=== PATIENT | female | born 1980 | race Caucasian/White ===

== ENCOUNTER 2016-07-30 17:29 | Observation (INO) | payer OTHER ==
[~2016-07-30] VITALS: Ht 152.4 cm; Wt 85.9 kg
--- NOTE | 2016-07-30 17:41 | DIAGNOSTIC IMAGING REPORT ---
PROCEDURE: US ABDOMEN ULTRASOUND-LIMITED INDICATION: Right abdominal pain. TECHNIQUE: Renteria scale and color Doppler sonographic images of the abdomen were obtained. COMPARISON: None. FINDINGS: There is moderate distention of the gallbladder secondary to a 3 cm nonmobile gallstone lodged in the neck of the gallbladder. Mild thickening of the gallbladder wall (5 mm). Common duct is obscured by shadowing gallstones, but there is no evidence of intrahepatic ductal dilation. Liver demonstrates two right lobe hemangiomas (1.6, 0.9 cm). Portions of the pancreas, right kidney, aorta, inferior vena cava are seen, and are normal. IMPRESSION: 1. Moderate distention of the gallbladder secondary to a 3 cm nonmobile gallstone lodged in the neck of the gallbladder. abdominal ultrasound. 2. Mild thickening of the gallbladder wall (5 mm) consistent with cholecystitis (acute or chronic). 3. There are two benign hemangiomas of the right lobe of the liver. 3. Findings discussed with the patient and called to AYANA Lopez.
--- NOTE | 2016-07-30 18:53 | ED ORDER SUMMARY ---
..... Patient: JUJU BARR OrderSheet [facility] VisitID: [id number] [place] [address] 36y, F Registration Date/Time: 07/30/2016 ORDER SHEET Weight: 89.6 kg (estimated) Allergies: No Known Drug Allergy GENERAL ORDERS: CBC w Diff Urgent (18:00 07/30/2016 Ade BUSTILLOS) (Ack 18:08 LMuller) (18:27 Rebekaeck R.N.) CMP Urgent (18:00 07/30/2016 Ade BUSTILLOS) (Ack 18:08 LMuller) (18:27 Rebekaeck R.N.) Amylase Urgent (18:07/30/2016 Ade BUSTILLOS) (Ack 18:08 LMuller) (18:27 Abelino R.N.) Lipase Urgent (18:00 07/30/2016 Ade BUSTILLOS) (Ack 18:08 LMuller) (18:27 Rebekaeck R.N.) UA-Culture if indicated Urgent (18:03 07/30/2016 Ade BUSTILLOS) (Ack 18:08 LMuller) Urine Urgent (18:03 07/30/2016 Ade BUSTILLOS) (Ack 18:08 LMuller) Urine Drug Screen Urgent (18:03 07/30/2016 Ade BUSTILLOS) (Ack 18:08 LMuller) MEDICATION ORDERS: IV FLUIDS: IV NS : initial bolus 500 mL (1000 mL/hr), then 250 mL/hr for 4h (NOW); Routine (18:00 07/30/2016 Ade BUSTILLOS) (18:33 Yelitza R.N.) Zofran IV 4 mg (NOW) (18:57 07/30/2016 Ade BUSTILLOS) (19:02 Yelitza R.N.) Demerol IV 12.5 mg (NOW) (18:58 07/30/2016 Ade BUSTILLOS) (19:02 Yelitza R.N.) Cefotan IV 1 gm (NOW) (19:08 07/30/2016 Ade BUSTILLOS) (19:21 EInderbitzen R.N.) ORDER SHEET NOTES: [Electronically signed by Scarlett Soriano R.N. (19:37 07/30/2016)] [Electronically signed by Noah Delgado MD (11:13 07/31/2016)] [Electronically locked/signed by Scarlett Soriano R.N. (19:37 07/30/2016)]
--- NOTE | 2016-07-30 18:53 | ED ORDER SUMMARY ---
..... Patient: JUJU BARR OrderSheet [facility] VisitID: [id number] [place] [address] 36y, F Registration Date/Time: 07/30/2016 ORDER SHEET Weight: 89.6 kg (estimated) Allergies: No Known Drug Allergy GENERAL ORDERS: CBC w Diff Urgent (18:00 07/30/2016 Ade BUSTILLOS) (Ack 18:08 LMuller) (18:27 Rebekaeck R.N.) CMP Urgent (18:00 07/30/2016 Ade BUSTILLOS) (Ack 18:08 LMuller) (18:27 Rebekaeck R.N.) Amylase Urgent (18:07/30/2016 Ade BUSTILLOS) (Ack 18:08 LMuller) (18:27 Abelino R.N.) Lipase Urgent (18:00 07/30/2016 Ade BUSTILLOS) (Ack 18:08 LMuller) (18:27 Rebekaeck R.N.) UA-Culture if indicated Urgent (18:03 07/30/2016 Ade BUSTILLOS) (Ack 18:08 LMuller) Urine Urgent (18:03 07/30/2016 Ade BUSTILLOS) (Ack 18:08 LMuller) Urine Drug Screen Urgent (18:03 07/30/2016 Ade BUSTILLOS) (Ack 18:08 LMuller) MEDICATION ORDERS: IV FLUIDS: IV NS : initial bolus 500 mL (1000 mL/hr), then 250 mL/hr for 4h (NOW); Routine (18:00 07/30/2016 Ade BUSTILLOS) (18:33 Yelitza R.N.) Zofran IV 4 mg (NOW) (18:57 07/30/2016 Ade BUSTILLOS) (19:02 Yelitza R.N.) Demerol IV 12.5 mg (NOW) (18:58 07/30/2016 Ade BUSTILLOS) (19:02 Yelitza R.N.) Cefotan IV 1 gm (NOW) (19:08 07/30/2016 Ade BUSTILLOS) (19:21 EInderbitzen R.N.) ORDER SHEET NOTES: [Electronically signed by Scarlett Soriano R.N. (19:37 07/30/2016)] [Electronically signed by Noah Delgado MD (11:13 07/31/2016)] [Electronically locked/signed by Scarlett Soriano R.N. (19:37 07/30/2016)]
--- NOTE | 2016-07-30 18:53 | ED CLINICAL REPORT ---
Clinical Report - Physicians/Mid Levels [facility] [address] [place] [address] 07/30/2016 17:30 Patient: JUJU BARR Time Seen: 1741. Arrived- By private vehicle. Historian- patient. CPT: ER phys charges level 5 (#[id number]). HISTORY OF PRESENT ILLNESS Chief Complaint: ABDOMINAL PAIN. At its maximum, severity described as moderate. When seen in the E.D., it was almost gone. Modifying factors- worsened by food. Not relieved by anything. It is described as "pain" and well localized and it is described as located in the right upper quadrant. This started about 1 weeks [employer] and is still present. The patient has had nausea and loss of appetite. No vomiting or diarrhea. No recent travel. Similar symptoms previously: None. Recent medical care: The patient was seen recently at another facility in a clinic (today). Seen for similar symptoms; Abdominal pain and MILNER. Evaluation/treatment: sonogram- sent to ER. Diagnosis: gall stones. ( Did get an injection of dexamethasone and phenergan for the MILNER and this also helped the abdominal pain.). REVIEW OF SYSTEMS No constipation, black stools, hematemesis, difficulty with urination or pain with urination. No urinary frequency, fever, sore throat or throat or chest pain. No difficulty breathing, cough, joint pain, skin rash or chills. No back pain, weakness, diabetic symptoms or easy bruising. Denies current . All systems otherwise negative, except as recorded above. PAST HISTORY Peptic ulcer. Gallstones. No history of bowel obstruction. Has not had urinary calculi. Medications: Compazine Oral. Imitrex. White GI Cocktail. Omeprazole 40 mg daily. Allergies: No Known Drug Allergy. SOCIAL HISTORY Never smoker. Occasional alcohol use. No drug use. ADDITIONAL NOTES The nursing notes have been reviewed. PHYSICAL EXAM Vital Signs: 07/30/2016 17:47 BP: 128/92. HR: 86. RR: 16. O2 saturation: 98%. Temp: 99.4 F. Pain level now: 08/01. Appearance: Alert. Appears to be in pain. Patient in moderate distress. Eyes: Eyes normal inspection. ENT: Pharynx normal. Neck: Normal inspection. CVS: Normal heart rate and rhythm. Heart sounds normal. Pulses normal. Respiratory: No respiratory distress. Breath sounds normal. Chest nontender. Abdomen: Soft. Moderate tenderness in the right upper quadrant with guarding present. Abnormal bowel sounds: diminished. No mass. Back: Normal inspection. Skin: Skin warm. Normal skin color. No rash. Extremities: Extremities exhibit normal ROM. No lower extremity edema. Neuro: Oriented X 3. No motor deficit. No sensory deficit. Reflexes normal. LABS, X-RAYS, AND EKG Abdominal Sonogram: A single gallstone is present (3 cm). Gallbladder wall thickening is present. The study was independently viewed by me and interpreted by the radiologist. Laboratory Tests: CBC w Diff: ([facility]: 07/31/2016 05:40) ( MsgRcvd 07/31/2016 05:51) Final results Test Result Flag Units (Reference) WHITE BLOOD COUNT 5.6 # K/uL (4.5-11.5) RED BLOOD COUNT 4.27 M/uL (4.00-5.20) HEMOGLOBIN 11.0 L gm/dL (12.0-16.0) HEMATOCRIT 33.4 L % (36.0-46.0) MEAN CELL VOLUME 78 L fL (80-100) MEAN CORPUSCULAR HGB 26 pg (26-34) MEAN CORPUSCULAR HGB CONC 33 g/dL (31-37) RED CELL DISTRIBUTION WIDTH 14.4 % (11.6-14.8) PLATELET COUNT 359 K/uL (150-400) NEUTROPHIL % 87.1 H % (50-75) LYMPH % 11.9 L % (25-40) MONO % 1.0 L % (3-14) EOSINOPHIL % 0 % (0-4) BASOPHIL % 0 % (0-2) BMP: ([facility]: 07/31/2016 05:40) ( MsgRcvd 07/31/2016 06:24) Final results Test Result Flag Units (Reference) GLUCOSE 120 H mg/dL (70-110) BUN 10 mg/dL (7-18) CREATININE 0.5 L mg/dL (0.6-1.3) Estimated GFR >60 mL/min Estimated GFR- >60 mL/min Note: Persistent reduction over 3 months in eGFR<60 mL/min/1.73 m2 defines CKD. Patients with eGFR values>=60 mL/min/1.73 m2 may also have CKD if evidence ofpersistent proteinuria. Additional information may be foundat www.kidney.org. SODIUM 147 H mmol/L (136-145) POTASSIUM 4.6 mmol/L (3.5-5.1) CHLORIDE 99 mmol/L (98-107) CARBON DIOXIDE 20 L mmol/L (21-32) CALCIUM 10.0 mg/dL (8.5-10.1) Bilirubin, Total: ([facility]: 07/31/2016 05:40) ( [facility] 07/31/2016 06:06) Final results Test Result Flag Units (Reference) BILIRUBIN, TOTAL 0.2 mg/dL (0.0-1.0) ALKALINE PHOSPHATASE 86 U/L (46-116) LIPASE 88 U/L (73-393) UA-Culture if indicated: ([facility]: 07/30/2016 20:00) ( [facility] [place] 07/30/2016 21:03) Final results Test Result Flag Units (Reference) URINE COLOR YELLOW URINE APPEARANCE CLEAR URINE GLUCOSE NEGATIVE (NEGATIVE) URINE BILIRUBIN NEGATIVE (NEGATIVE) URINE KETONE 3+ (NEGATIVE) URINE SPECIFIC GRAVITY 1.020 (1.010-1.030) URINE PH 6.5 (5.0-8.0) URINE PROTEIN NEGATIVE (NEGATIVE) URINE UROBILINOGEN 0.2 EU/dL (0.2-1.0) URINE NITRITE NEGATIVE (NEGATIVE) URINE BLOOD 2+ (NEGATIVE) URINE LEUK ESTERASE NEGATIVE (NEGATIVE) URINE RBC 5-10 rbc/hpf (0-1) URINE WBC 3-5 wbc/hpf (0-1) URINE EPITHELIAL CELLS 5-10 EPI/hpf (0-5) URINE BACTERIA MODERATE (2+ TO 3+) (NONE SEEN) URINE COMMENT CULTURE INDICATED MUCUS 2+URINE CULTURES ARE SET-UP BASED ON THE FOLLOWING CRITERIA:POSITIVE NITRITEPOSITIVE LEUKOCYTE ESTERASEGREATER THAN 10 WHITE BLOOD CELLSMODERATE (2+) OR GREATER BACTERIA Urine: ([facility]: 07/30/2016 20:00) ( [facility] [place] 07/30/2016 20:43) Final results Test Result Flag Units (Reference) URINE NEGATIVE CBC w Diff: ([facility]: 07/30/2016 18:05) ( [facility] 07/30/2016 18:23) Final results Test Result Flag Units (Reference) WHITE BLOOD COUNT 12.7 H K/uL (4.5-11.5) RED BLOOD COUNT 4.79 M/uL (4.00-5.20) HEMOGLOBIN 12.4 gm/dL (12.0-16.0) HEMATOCRIT 37.3 % (36.0-46.0) MEAN CELL VOLUME 78 L fL (80-100) MEAN CORPUSCULAR HGB 26 pg (26-34) MEAN CORPUSCULAR HGB CONC 33 g/dL (31-37) RED CELL DISTRIBUTION WIDTH 14.2 % (11.6-14.8) PLATELET COUNT 440 H K/uL (150-400) NEUTROPHIL % 92.4 H % (50-75) LYMPH % 6.6 L % (25-40) MONO % 0.9 L % (3-14) EOSINOPHIL % 0.1 % (0-4) BASOPHIL % 0 % (0-2) Urine Drug Screen: ([facility]: 07/30/2016 20:00) ( [facility] 07/30/2016 20:58) Final results Test Result Flag Units (Reference) AMPHETAMINE/METHAMPHETAMINE NEGATIVE (NEGATIVE) BARBITURATE NEGATIVE (NEGATIVE) BENZODIAZEPINE NEGATIVE (NEGATIVE) CANNABINOID NEGATIVE (NEGATIVE) COCAINE NEGATIVE (NEGATIVE) ECSTASY NEGATIVE (NEGATIVE) METHADONE NEGATIVE (NEGATIVE) OPIATE NEGATIVE (NEGATIVE) The urine drug screen is a qualitative screening test fordrug overdose and abuse. All screen results should beconsidered as presumptive.Drugs screened for are as follows:BenzodiazepinesCocaineAmphetamines/MetamphetaminesTHC (Tetrahydrocannabinol)OpiatesBarbituratesEcstasyMethadonePositive results are unconfirmed. For confirmation, notifythe lab for the specimen to be sent to the reference lab.All confirmations must be performed by a differentmethodology.The ingestion of natural herbal and plant productscontaining Ephedra/Ephedra metabolites can produce in urineone or more substances capable of cross reacting withamphetamine/methamphetamine immunoassays. These testsprovide a preliminary result only. A more specificalternative chemical method must be used to obtain aconfirmed analytical result. CMP: ([facility]: 07/30/2016 18:05) ( MsgRcvd 07/30/2016 18:35) Final results Test Result Flag Units (Reference) GLUCOSE 104 mg/dL (70-110) BUN 8 mg/dL (7-18) CREATININE 0.7 mg/dL (0.6-1.3) Estimated GFR >60 mL/min Estimated GFR- >60 mL/min Note: Persistent reduction over 3 months in eGFR<60 mL/min/1.73 m2 defines CKD. Patients with eGFR values>=60 mL/min/1.73 m2 may also have CKD if evidence ofpersistent proteinuria. Additional information may be foundat www.kidney.org. SODIUM 141 mmol/L (136-145) POTASSIUM 4.0 mmol/L (3.5-5.1) CHLORIDE 104 mmol/L (98-107) CARBON DIOXIDE 24 mmol/L (21-32) CALCIUM 10.5 H mg/dL (8.5-10.1) TOTAL PROTEIN 8.3 H g/dL (6.4-8.2) ALBUMIN 4.1 g/dL (3.3-5.0) BILIRUBIN, TOTAL 0.4 mg/dL (0.0-1.0) ALKALINE PHOSPHATASE 98 U/L (46-116) AST (SGOT) 19 U/L (15-37) ALT (SGPT) 39 U/L (12-78) LIPASE 92 U/L (73-393) AMYLASE 40 U/L (25-115) Culture, Urine: ([facility]: 07/30/2016 20:00) ( MsgRcvd 07/31/2016 10:24) IP Test Result Flag Units (Reference) CULTURE, URINE DATE: 07/31/16 PRELIM REPORT: PRELIMINARY REPORT #1 VERY EARLY GROWTH: VERY EARLY GROWTH: CULTURE TOO YOUNG FOR WORKUP-REINCUBATED . PROGRESS AND PROCEDURES Course of Care: patient notes that her pain and her nausea have resolved since she got a shot in the walk-in clinic for her headache. I'm told the shot was dexamethasone and Phenergan. IV NS , labs sent. Discussed case with on-call health care provider, (Adriano). Reviewed test results. Agreed upon treatment plan and decision to admit. Health care provider will see patient in ED. Patient/family counseled. Old medical records ordered. Disposition orders written. Disposition: Admitted to Acute Care. CLINICAL IMPRESSION Acute cholecystitis with obstruction and cholelithiasis. No choledocholithiasis. (Electronically signed by Noah Delgado MD 07/31/2016 11:13)
--- NOTE | 2016-07-30 18:53 | ED NURSING NOTES ---
Clinical Report - Nurses [facility] [place] [address] 07/30/2016 17:30 Patient: JUJU BARR TRIAGE Triage time 17:47 Jul 30 2016. Acuity: LEVEL 3. Chief Complaint: ABDOMINAL PAIN and NAUSEA and (Reported s/s started 1 week ago. Patient had an outpatient US doen that revealed a galstone.). --17:54 Zen Jackson R.N. 17:47 07/30/16. BP: 128/92. HR: 86. RR: 16. O2 saturation: 98%. Temp: 99.4 F. Pain level now: 08/01. --17:54 Zen Jackson R.N. Weight: 89.6 kg estimated. Height/Length: 60 inches Per Patient. BMI: 38.6. --17:46 Zen Jackson R.N. Medications Omeprazole 40 mg daily. --17:49 Zen Jackson R.N. White GI Cocktail. --17:49 Zen Jackson R.N. Imitrex. --17:49 Zen Jackson R.N. Compazine Oral. --17:50 Zen Jackson R.N. Medication/allergy information source: the patient and patient's spouse. --17:54 Zen Jackson R.N. Allergies No Known Drug Allergy. --17:48 Zen Jackson R.N. History Arrived by private vehicle. Historian: patient. Accompanied by family. The patient has had fever, nausea, diarrhea and abdominal pain. Last oral intake by patient was dinner (07/29/16). PAST MEDICAL HX: Peptic ulcer disease. No history of diabetes mellitus. Last normal menstrual period now. Denies current . ( Suspected peptic ulcer a few years ago.). SURGERY HX: Bilateral tubal ligation. SOCIAL HX: Never smoker. Occasional alcohol use. No drug use. No infectious disease exposure. ABUSE ASSESSMENT: No report of abuse. FALL RISK ASSESSMENT: Fall risk assessment completed. No fall risk identified. NUTRITIONAL RISK ASSESSMENT: The nutritional risk assessment revealed no deficiencies. FUNCTIONAL ASSESSMENT: Functional assessment: no impairments noted. LEARNING NEEDS ASSESSMENT: The learning needs assessment revealed no barriers. SKIN INTEGRITY ASSESSMENT: Skin integrity risk assessment completed. No skin integrity risk identified. --17:54 Zen Jackson R.N. Interventions ID band on patient. To treatment room. --17:54 Zen Jackson R.N. PHYSICAL ASSESSMENT Ambulatory to room. Patient gowned. GENERAL / NEURO / PSYCH: Alert. Oriented X 4. Appears in no acute distress. RESPIRATORY: Respirations not labored. Breath sounds within normal limits. CVS: Capillary refill less than 2 seconds. GI / : The patient has had nausea. Abdomen soft. Bowel sounds within normal limits. --17:55 Zen Jackson R.N. 17:55. GI / : Other abdominal findings: (Patient reports RUQ pain that radiates around to her back.). --18:42 Zen Jackson R.N. NURSING PROGRESS NOTES 17:56 07/30/16. Pulse oximeter and NIBP monitor placed on patient; monitor alarms on. Patient gowned. Reassurance given. Two patient identifiers checked. Call light placed in reach. Bed placed in lowest position. Brakes of bed on. Patient ready for evaluation- chart flagged. --17:56 Zen Jackson R.N. 18:18 07/30/2016 Site #1 started via IV in the left antecubital space with an 20g angiocath, with good blood return; one attempt. Blood drawn: rainbow set. Labeled in the presence of the patient and sent to the lab. Saline lock flushed with 10 mL saline. --18:33 Zen Jackson R.N. 18:33 07/30/2016 Started bag #1 1000 mL IV Fluids IV NS (Saline); bolus of 500 mL then at 1000 mL/hr via site #1 via IV pump. Allergies verified and confirmed 5 rights. IV patency established. IV site checked: no pain, redness, or swelling. IV flushed thoroughly pre- and post-medication administration. --18:33 Zen Jackson R.N. Patient ID band checked for patient name and birthdate: patient confirmed. Blood samples drawn from the left antecubital space peripheral IV site with 18g by nurse: maranda macdonald. Line flushed with 10 mL normal saline post blood draw. --18:35 Zen Jackson R.N. 19:02 07/30/2016 Zofran (Ondansetron HCl) IVP 4 mg given. via site #1. Allergies verified and confirmed 5 rights. IV patency established. IV site checked: no pain, redness, or swelling. IV flushed thoroughly pre- and post-medication administration. IVP given by RN. --19:02 Zen Jackson R.N. 19:02 07/30/2016 Demerol (Meperidine HCl) IVP 12.5 mg given. via site #1. Allergies verified and confirmed 5 rights. IV patency established. IV site checked: no pain, redness, or swelling. IV flushed thoroughly pre- and post-medication administration. IVP given by RN. --19:02 Zen Jackson R.N. 19:05 07/30/16. Care transferred and report received (from Lana, RNs). --19:05 Scarlett Soriano R.N. 19:09 07/30/2016 IV Fluids IV NS via IV site #1 Rate Changed: bag #1 decreased to 250 mL/hr via IV pump. IV patency established. IV site checked: no pain, redness, or swelling. IV flushed thoroughly. Confirmed 5 Rights. --19:09 Zen Jackson R.N. 19:11 07/30/16. BP: 122/82. HR: 78. RR: 16. O2 saturation: 97%. Pain level now 0/10. --19:11 Scarlett Soriano R.N. 19:11 07/30/16. Reassessment after medication administered. She has had no adverse reaction. Overall patient status is improved- she states feels better. GI / : The patient reports abdominal pain is gone now. --19:11 Scarlett Soriaon R.N. Care transferred and report given. --19:15 Zen Jackson R.N. 19:20 07/30/2016 Started 1 gm of Cefotan IVPB in bag #1 50 mL; at 200 mL/hr over 30 minute(s) via site #1 via IV pump. Allergies verified and confirmed 5 rights. IV patency established. IV site checked: no pain, redness, or swelling. IV flushed thoroughly pre- and post-medication administration. --19:21 Scarlett Soriano R.N. DISPOSITION / DISCHARGE 19:35 07/30/2016 Cefotan IVPB Continued: at the rate of 200 mL/hr. 25 mL remaining bag #1. IV patency established. IV site checked: no pain, redness, or swelling. IV flushed thoroughly. --19:35 Scarlett Soriano R.N. 19:36 07/30/2016 IV Fluids IV NS Continued: at the rate of 250 mL/hr. 450 mL remaining bag #1. IV patency established. IV site checked: no pain, redness, or swelling. IV flushed thoroughly. --19:36 Scarlett Soriano R.N. 19:36 07/30/16. Departure time: 19:36 Jul 30 2016. Condition at departure: improved and stable. The goals identified in the patient's plan of care were met. Disposition: observation in Acute Care. Report was given to a nurse via a phone call. Report included patient's care, treatment, medications, reviewed medication reconcilliation, and condition (including any recent changes or anticipated changes). All questions were answered. Report was acknowledged. (MADELINE Alex). Bed obtained and ready (204B). FALL RISK ASSESSMENT: Fall risk assessment completed. No fall risk identified. --19:36 Scarlett Soriano R.N. 19:11 07/30/16. BP: 122/82. HR: 78. RR: 16. O2 saturation: 97%. Pain level now 010. 17:47 07/30/16. BP: 128/92. HR: 86. RR: 16. O2 saturation: 98%. Temp: 99.4 F. Pain level now: 210. --19:36 Scarlett Soriano R.N. Locked/Released at 07/30/2016 19:37 by Scarlett Soriano R.N.
--- NOTE | 2016-07-30 18:53 | ED CLINICAL REPORT ---
Clinical Report - Physicians/Mid Levels [facility] [address] [place] [address] 07/30/2016 17:30 Patient: JUJU BARR Time Seen: 1741. Arrived- By private vehicle. Historian- patient. CPT: ER phys charges level 5 (#[id number]). HISTORY OF PRESENT ILLNESS Chief Complaint: ABDOMINAL PAIN. At its maximum, severity described as moderate. When seen in the E.D., it was almost gone. Modifying factors- worsened by food. Not relieved by anything. It is described as "pain" and well localized and it is described as located in the right upper quadrant. 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 The patient has had nausea and loss of appetite. No vomiting or diarrhea. No recent travel. Similar symptoms previously: None. Recent medical care: The patient was seen recently at another facility in a clinic (today). Seen for similar symptoms; Abdominal pain and MILNER. Evaluation/treatment: sonogram- sent to ER. Diagnosis: gall stones. ( Did get an injection of dexamethasone and phenergan for the MILNER and this also helped the abdominal pain.). REVIEW OF SYSTEMS No constipation, black stools, hematemesis, difficulty with urination or pain with urination. No urinary frequency, fever, sore throat or throat or chest pain. No difficulty breathing, cough, joint pain, skin rash or chills. No back pain, weakness, diabetic symptoms or easy bruising. Denies current . All systems otherwise negative, except as recorded above. PAST HISTORY Peptic ulcer. Gallstones. No history of bowel obstruction. Has not had urinary calculi. Medications: Compazine Oral. Imitrex. White GI Cocktail. Omeprazole 40 mg daily. Allergies: No Known Drug Allergy. SOCIAL HISTORY Never smoker. Occasional alcohol use. No drug use. ADDITIONAL NOTES The nursing notes have been reviewed. PHYSICAL EXAM Vital Signs: 07/30/2016 17:47 BP: 128/92. HR: 86. RR: 16. O2 saturation: 98%. Temp: 99.4 F. Pain level now: 08/01. Appearance: Alert. Appears to be in pain. Patient in moderate distress. Eyes: Eyes normal inspection. ENT: Pharynx normal. Neck: Normal inspection. CVS: Normal heart rate and rhythm. Heart sounds normal. Pulses normal. Respiratory: No respiratory distress. Breath sounds normal. Chest nontender. Abdomen: Soft. Moderate tenderness in the right upper quadrant with guarding present. Abnormal bowel sounds: diminished. No mass. Back: Normal inspection. Skin: Skin warm. Normal skin color. No rash. Extremities: Extremities exhibit normal ROM. No lower extremity edema. Neuro: Oriented X 3. No motor deficit. No sensory deficit. Reflexes normal. LABS, X-RAYS, AND EKG Abdominal Sonogram: A single gallstone is present (3 cm). Gallbladder wall thickening is present. The study was independently viewed by me and interpreted by the radiologist. Laboratory Tests: CBC w Diff: ([facility]: 07/31/2016 05:40) ( MsgRcvd 07/31/2016 05:51) Final results Test Result Flag Units (Reference) WHITE BLOOD COUNT 5.6 # K/uL (4.5-11.5) RED BLOOD COUNT 4.27 M/uL (4.00-5.20) HEMOGLOBIN 11.0 L gm/dL (12.0-16.0) HEMATOCRIT 33.4 L % (36.0-46.0) MEAN CELL VOLUME 78 L fL (80-100) MEAN CORPUSCULAR HGB 26 pg (26-34) MEAN CORPUSCULAR HGB CONC 33 g/dL (31-37) RED CELL DISTRIBUTION WIDTH 14.4 % (11.6-14.8) PLATELET COUNT 359 K/uL (150-400) NEUTROPHIL % 87.1 H % (50-75) LYMPH % 11.9 L % (25-40) MONO % 1.0 L % (3-14) EOSINOPHIL % 0 % (0-4) BASOPHIL % 0 % (0-2) BMP: ([facility]: 07/31/2016 05:40) ( MsgRcvd 07/31/2016 06:24) Final results Test Result Flag Units (Reference) GLUCOSE 120 H mg/dL (70-110) BUN 10 mg/dL (7-18) CREATININE 0.5 L mg/dL (0.6-1.3) Estimated GFR >60 mL/min Estimated GFR- >60 mL/min Note: Persistent reduction over 3 months in eGFR<60 mL/min/1.73 m2 defines CKD. Patients with eGFR values>=60 mL/min/1.73 m2 may also have CKD if evidence ofpersistent proteinuria. Additional information may be foundat www.kidney.org. SODIUM 147 H mmol/L (136-145) POTASSIUM 4.6 mmol/L (3.5-5.1) CHLORIDE 99 mmol/L (98-107) CARBON DIOXIDE 20 L mmol/L (21-32) CALCIUM 10.0 mg/dL (8.5-10.1) Bilirubin, Total: ([facility]: 07/31/2016 05:40) ( [facility] 07/31/2016 06:06) Final results Test Result Flag Units (Reference) BILIRUBIN, TOTAL 0.2 mg/dL (0.0-1.0) ALKALINE PHOSPHATASE 86 U/L (46-116) LIPASE 88 U/L (73-393) UA-Culture if indicated: ([facility]: 07/30/2016 20:00) ( [facility] 07/30/2016 21:03) Final results Test Result Flag Units (Reference) URINE COLOR YELLOW URINE APPEARANCE CLEAR URINE GLUCOSE NEGATIVE (NEGATIVE) URINE BILIRUBIN NEGATIVE (NEGATIVE) URINE KETONE 3+ (NEGATIVE) URINE SPECIFIC GRAVITY 1.020 (1.010-1.030) URINE PH 6.5 (5.0-8.0) URINE PROTEIN NEGATIVE (NEGATIVE) URINE UROBILINOGEN 0.2 EU/dL (0.2-1.0) URINE NITRITE NEGATIVE (NEGATIVE) URINE BLOOD 2+ (NEGATIVE) URINE LEUK ESTERASE NEGATIVE (NEGATIVE) URINE RBC 5-10 rbc/hpf (0-1) URINE WBC 3-5 wbc/hpf (0-1) URINE EPITHELIAL CELLS 5-10 EPI/hpf (0-5) URINE BACTERIA MODERATE (2+ TO 3+) (NONE SEEN) URINE COMMENT CULTURE INDICATED MUCUS 2+URINE CULTURES ARE SET-UP BASED ON THE FOLLOWING CRITERIA:POSITIVE NITRITEPOSITIVE LEUKOCYTE ESTERASEGREATER THAN 10 WHITE BLOOD CELLSMODERATE (2+) OR GREATER BACTERIA Urine: ([facility]: 07/30/2016 20:00) ( [facility] 07/30/2016 20:43) Final results Test Result Flag Units (Reference) URINE NEGATIVE CBC w Diff: ([facility]: 07/30/2016 18:05) ( [facility] 07/30/2016 18:23) Final results Test Result Flag Units (Reference) WHITE BLOOD COUNT 12.7 H K/uL (4.5-11.5) RED BLOOD COUNT 4.79 M/uL (4.00-5.20) HEMOGLOBIN 12.4 gm/dL (12.0-16.0) HEMATOCRIT 37.3 % (36.0-46.0) MEAN CELL VOLUME 78 L fL (80-100) MEAN CORPUSCULAR HGB 26 pg (26-34) MEAN CORPUSCULAR HGB CONC 33 g/dL (31-37) RED CELL DISTRIBUTION WIDTH 14.2 % (11.6-14.8) PLATELET COUNT 440 H K/uL (150-400) NEUTROPHIL % 92.4 H % (50-75) LYMPH % 6.6 L % (25-40) MONO % 0.9 L % (3-14) EOSINOPHIL % 0.1 % (0-4) BASOPHIL % 0 % (0-2) Urine Drug Screen: ([facility]: 07/30/2016 20:00) ( [facility] 07/30/2016 20:58) Final results Test Result Flag Units (Reference) AMPHETAMINE/METHAMPHETAMINE NEGATIVE (NEGATIVE) BARBITURATE NEGATIVE (NEGATIVE) BENZODIAZEPINE NEGATIVE (NEGATIVE) CANNABINOID NEGATIVE (NEGATIVE) COCAINE NEGATIVE (NEGATIVE) ECSTASY NEGATIVE (NEGATIVE) METHADONE NEGATIVE (NEGATIVE) OPIATE NEGATIVE (NEGATIVE) The urine drug screen is a qualitative screening test fordrug overdose and abuse. All screen results should beconsidered as presumptive.Drugs screened for are as follows:BenzodiazepinesCocaineAmphetamines/MetamphetaminesTHC (Tetrahydrocannabinol)OpiatesBarbituratesEcstasyMethadonePositive results are unconfirmed. For confirmation, notifythe lab for the specimen to be sent to the reference lab.All confirmations must be performed by a differentmethodology.The ingestion of natural herbal and plant productscontaining Ephedra/Ephedra metabolites can produce in urineone or more substances capable of cross reacting withamphetamine/methamphetamine immunoassays. These testsprovide a preliminary result only. A more specificalternative chemical method must be used to obtain aconfirmed analytical result. CMP: ([facility]: 07/30/2016 18:05) ( MsgRcvd 07/30/2016 18:35) Final results Test Result Flag Units (Reference) GLUCOSE 104 mg/dL (70-110) BUN 8 mg/dL (7-18) CREATININE 0.7 mg/dL (0.6-1.3) Estimated GFR >60 mL/min Estimated GFR- >60 mL/min Note: Persistent reduction over 3 months in eGFR<60 mL/min/1.73 m2 defines CKD. Patients with eGFR values>=60 mL/min/1.73 m2 may also have CKD if evidence ofpersistent proteinuria. Additional information may be foundat www.kidney.org. SODIUM 141 mmol/L (136-145) POTASSIUM 4.0 mmol/L (3.5-5.1) CHLORIDE 104 mmol/L (98-107) CARBON DIOXIDE 24 mmol/L (21-32) CALCIUM 10.5 H mg/dL (8.5-10.1) TOTAL PROTEIN 8.3 H g/dL (6.4-8.2) ALBUMIN 4.1 g/dL (3.3-5.0) BILIRUBIN, TOTAL 0.4 mg/dL (0.0-1.0) ALKALINE PHOSPHATASE 98 U/L (46-116) AST (SGOT) 19 U/L (15-37) ALT (SGPT) 39 U/L (12-78) LIPASE 92 U/L (73-393) AMYLASE 40 U/L (25-115) Culture, Urine: ([facility]: 07/30/2016 20:00) ( MsgRcvd 07/31/2016 10:24) IP Test Result Flag Units (Reference) CULTURE, URINE DATE: 07/31/16 PRELIM REPORT: PRELIMINARY REPORT #1 VERY EARLY GROWTH: VERY EARLY GROWTH: CULTURE TOO YOUNG FOR WORKUP-REINCUBATED . PROGRESS AND PROCEDURES Course of Care: patient notes that her pain and her nausea have resolved since she got a shot in the walk-in clinic for her headache. I'm told the shot was dexamethasone and Phenergan. IV NS , labs sent. Discussed case with on-call health care provider, (Adriano). Reviewed test results. Agreed upon treatment plan and decision to admit. Health care provider will see patient in ED. Patient/family counseled. Old medical records ordered. Disposition orders written. Disposition: Admitted to Acute Care. CLINICAL IMPRESSION Acute cholecystitis with obstruction and cholelithiasis. No choledocholithiasis. (Electronically signed by Noah Delgado MD 07/31/2016 11:13)
[2016-07-30 20:11] VITALS: BP 116/73
[2016-07-30] MEDS ORDERED: OMEPRAZOLE40 MG PO (20:53)
[2016-07-30] MEDS ORDERED: GI COCKTAIL (20:56)
[2016-07-30] MEDS ORDERED: UNKNOWN MED (20:58)
--- NOTE | 2016-07-30 21:12 | HISTORY AND PHYSICAL ---
ADMITTED: 07/30/2016 HISTORY OF PRESENT ILLNESS: The patient is a 36-year-old female with chief complaint of abdominal pain. Symptoms have been going on for about a week. She reports pain in the epigastric and right upper quadrant for a week, associated with food intake. She has not eaten much the past week. She was seen at [place] emergency department about a week ago and was referred to gastroenterology. An ultrasound and an endoscopy were supposed to be done as an outpatient, but that procedure was canceled due to persistent pain. She decided to go to an outpatient clinic where an ultrasound done showed a gallstone. The patient returns today because of persistent pain, nausea and vomiting. Workup in our emergency department included an abdominal ultrasound, which showed moderate distention of the gallbladder with a gallstone lodged in the neck of the gallbladder with mild thickening of the gallbladder wall, 5 mm, consistent with cholecystitis. MEDICAL/SURGICAL HISTORY: Past medical history: Pertinent for peptic ulcer disease. Past surgeries: Include bilateral tubal ligation. Obstetrical/gynecologic history: She is 3, para 3, regular monthly menstrual periods. MEDICATIONS: 1. Omeprazole 40 mg daily. 2. PRN Compazine. ALLERGIES: 1. NONE. SOCIAL HISTORY: Nonsmoker. Rare alcohol use. No recreational drug use. She lives with her boyfriend. FAMILY HISTORY: Noncontributory to patient's illness. REVIEW OF SYSTEMS: The patient denies any chest pain, palpitations. No hematemesis, melena, hematochezia. No leg edema. No rash. No other associated symptoms. PHYSICAL EXAMINATION: GENERAL: Shows a well-developed, well-nourished female, who is not in any form of cardiopulmonary distress. VITAL SIGNS: Blood pressure is 128/92, heart rate 86, respirations 16, O2 saturations 98, temperature is 99.4. Weight is 89.6, BMI is 38.6. HEENT: She is normocephalic with pink conjunctivae. Anicteric. Pupils are reactive with moist oral mucosa. NECK: No JVD. No bruits. LUNGS: Clear. No rales, no wheezes, no rhonchi. CARDIOVASCULAR: Regular rate and rhythm. S1, S2 normal. No S3, no S4. No gallops , murmurs or rubs. ABDOMEN: Soft. Mild tenderness in the epigastric area. There also is mild tenderness in the right upper quadrant with some guarding. Normoactive bowel sounds noted. No bruits. No masses. BACK: No CVA tenderness. EXTREMITIES: No edema or cyanosis. Full peripheral pulses. NEUROLOGIC: No lateralizing signs. LAB/IMAGING: Her laboratories include a hemoglobin of 12.4, hematocrit 37.3, MCV of 78, WBC of 12.7. Sodium 141, potassium 4, chloride 104, CO2 24, BUN of 8, creatinine 0.7, glucose of 104. LFTs normal. Lipase is normal. IMPRESSION: 1. Acute cholecystitis/symptomatic cholelithiasis. PLAN: We will admit to observation. We will consult surgery. We will place the patient empirically on antibiotics in the form of Cefotetan. We will control pain with narcotic analgesics and nausea with Zofran. Plan of care discussed with the patient, she agreed and verbalized understanding.
[2016-07-30] MEDS ORDERED: IMITREX50 MG PO (21:45)
[2016-07-30 22:42] VITALS: BP 112/67
[2016-07-31] VITALS (10 sets, daily range): BP systolic 102–123; BP diastolic 58–69
--- NOTE | 2016-07-31 03:13 | NUR ---
PT TO ROOM 204B FROM ED ABOUT 1999 ON 07/30/16. ASSISTANT FAMILY TEACHER TRANSPORTED PT ON STRETCHER. PT ABLE TO AMBULATE FROM STRETCHER INTO ROOM AND INTO BATHROOM BEFORE GETTING INTO BED. ALERT AND ORIENTED. DENIED PAIN. NS RUNNING INTO PIV. MADE COMFORTABLE IN BED.
--- NOTE | 2016-07-31 05:26 | NUR ---
A&OX4. VSS. C/O ADBOMINAL PAIN ONCE. MEDICATED WITH IV DEMEROL, EFFECTIVE. SLEEPING MOST OF SHIFT. INDEPENDENT IN ROOM. SURGICAL CONSULT TODAY. WCTM.
--- NOTE | 2016-07-31 06:44 | NUR ---
PT NOT VACCINATED FOR INFLUENZA THIS SEASON. SHE IS UNSURE IF SHE WANTS THE VACCINE. CDC INFO BROCHURE GIVEN TO PT.
--- NOTE | 2016-07-31 07:08 | CONSULTATION REPORT ---
DATE OF CONSULTATION: 07/31/2016 CHIEF COMPLAINT: 1. Abdominal pain HISTORY OF PRESENT ILLNESS: A 36-year-old female with a 1 year history of off and on right upper quadrant abdominal pain. Initially was thought to have ulcers and was placed on a proton pump inhibitor. Approximately 5 days ago, she went to the emergency department at [facility] where they felt that this was gastrointestinal related and scheduled her to see a hand leather trimmer. At that time, her white count was 9.7, hemoglobin and hematocrit 12.3 and 37.7 respectively. Yesterday, however, she had a severe attack. She went to a local walk-in clinic who referred her for an ultrasound of her gallbladder. Ultrasound was interpreted by Dr. Rice as a thickened wall gallbladder, and a 3 cm stone lodged in the neck of the gallbladder consistent with cholelithiasis, acute/chronic cholecystitis. She was referred to the emergency room where she was further evaluated and noted to have a white count of 12.7, hemoglobin and hematocrit 12.4 and 37.3 respectively. The patient was admitted [facility] by Dr. Chiu. The patient denies any history of jaundice, alirio-colored stools, dark urine, fever or chills. Pain is intermittent, located in the right upper quadrant, lasting anywhere from 30 minutes to 2 hours, at times quite severe, radiating into her back. MEDICAL/SURGICAL HISTORY: Significant only for a tubal ligation and history of chronic migraines. MEDICATIONS: 1. Imitrex, the patient cannot remember the dose. She does take it daily. 2. When she went to [facility], she was started on omeprazole 40 mg daily. 3. Gastrointestinal cocktail. 4. Compazine, she does not remember the dose. ALLERGIES: 1. NONE. SOCIAL HISTORY: She is . She has 2 sons, 1 daughter. They are in good health. The patient does not smoke, rarely drinks alcohol. Drinks half a cup of coffee per day and does not use recreational drugs. 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 She lives in [place]. FAMILY HISTORY: The patient is adopted, however, her biological father and mother, age and whereabouts unknown. She does know that she has 2 brothers, 5 sisters and their health and whereabouts are unknown as well. REVIEW OF SYSTEMS: She is G3, P3, AB0. Menarche age 12. First full-term age 22. Last menstrual: She is presently in her menses. Her last Pap smear was approximately 9 years ago. She has never had a mammogram. She denies any history of hepatitis, jaundice, rheumatic fever, blood transfusion, heart murmurs requiring antibiotics or bleeding tendencies. The remaining 12-point review of systems is negative. PHYSICAL EXAMINATION: GENERAL: The patient is awake, alert, does not appear to be any acute discomfort. She is conversant and oriented. VITAL SIGNS: Blood pressure 102/61, pulse 62, respirations 16, temperature is 98.4. HEENT: Normocephalic, atraumatic. Pupils equal and reactive. No scleral icterus. External auditory canals clear. Nose: Nasal septal defect or discharge. Throat is clear. Moist mucous membranes. NECK: Supple. No JVD, carotid bruit or adenopathy. No thyromegaly. LUNGS: Clear. No rales, rhonchi, or wheezing, O2 saturation 96% on room air. HEART: Regular rhythm, no murmurs. ABDOMEN: Nondistended. Positive bowel sounds, nontender. No masses. No hepatosplenomegaly. EXTREMITIES: Full range of motion, active and passively. No pretibial or ankle edema. NEUROLOGIC: The patient is grossly intact with no focal motor neurological deficits. SKIN: Warm and dry with no evidence of peripheral cyanosis or jaundice. LYMPHATICS: No cervical, supraclavicular, axillary, or groin adenopathy. LAB/IMAGING: This morning, her white count is 5.6, hemoglobin and hematocrit 11.0 and 33. On admission, her electrolytes sodium 141, chloride 104, potassium 4.0, bicarbonate 24, glucose 104, BUN 8, creatinine 0.7. Liver function studies are normal. Total bilirubin 0.4, alkaline phosphatase 98, lipase 92. IMPRESSION: 1. Subacute chronic cholecystitis and cholelithiasis, possible early hydrops of gallbladder PLAN: The pathophysiology of gallbladder disease been explained to the patient. Our recommendation is to proceed with surgery during his hospitalization to remove her gallbladder laparoscopically. The procedure has been explained to the patient including the potential risk of the trocar site infection, hernia, conversion to open procedure, hemorrhage, transfusion, major ductal damage, requiring rerouting of the small intestine to the liver, bile leak, retained stone, pulmonary embolus, pneumonia, damage to local structures, just to name a few, but not exclusive of. The patient understands and agrees to proceed. At this point, all questions have been answered to her satisfaction. We will schedule her appropriately.
--- NOTE | 2016-07-31 10:00 | NUR ---
PT DENIES ABD PAIN. C/O MIGRAINE AND IMITREX GIVEN. PRE-OP CREW TO FIELD CONTACT TECHNICIAN PT FOR LAP ROBBIN PROCEDURE.
--- NOTE | 2016-07-31 11:14 | ED MED RECONCILIATION SUMMARY ---
Patient: JUJU BARR Medication Reconciliation Report [facility] VisitID: [id number] [address] [place] [address] 36y, F Registration Date/Time: 07/30/2016 Weight: 89.6 kg Height/Length: 60 in. BMI: 38.6 ALLERGIES: No Known Drug Allergy The patient's Home Medications are listed below: THE FOLLOWING MEDICATIONS NEED TO BE RECONCILED: Compazine Oral Imitrex Omeprazole 40 mg daily White GI Cocktail The source(s) of the original Home Medication information: patient patient's spouse The following Medications were given to the patient in the Emergency Department: IV NS IV Fluids bolus 500 mL, then 1000 mL/hr, administered: 07/30/2016 6:33:00 PM Zofran [IVP] IVP 4 mg, administered: 07/30/2016 7:02:00 PM Demerol [IVP] IVP 12.5 mg, administered: 07/30/2016 7:02:00 PM Cefotan [IVPB] IVPB bolus 0, then 1 gm 200 mL/hr, administered: 07/30/2016 7:20:00 PM The following Medications were prescribed to the patient: None.
--- NOTE | 2016-07-31 11:14 | ED DISCHARGE INSTRUCTIONS ---
Patient: JUJU BARR General Instructions Located Within [facility] VisitID: [id number] [place] [address] 36y, F Registration Date/Time: 07/30/2016 Acute cholecystitis with obstruction and cholelithiasis. No choledocholithiasis. ADDITIONAL INFORMATION Cholecystitis (Confirmed) Your abdominal pain is due to an inflammation and possible infection in the gallbladder. The gallbladder is a small sac under the liver, which stores and releases bile. Bile is a fluid that aids in the digestion of fat. A gallstone may form in this sac and block the passage of bile fluid. This can lead to mild to severe abdominal pain, fever, nausea and vomiting. Home Care: Rest in bed and follow a clear liquid diet until the pain, nausea and vomiting have gone away. Antibiotics and other medicine may be prescribed. Take this exactly as directed. You may use ibuprofen (Motrin, Advil) or naproxen (Naprosyn, Aleve) to control pain, unless another medicine was prescribed. [NOTE: If you have chronic kidney disease or ever had a stomach ulcer or GI bleeding, talk with your doctor before using these medicines.] Fat in your diet makes the gallbladder contract and may cause increased pain. Therefore, avoid fat in your diet over the next two days and follow a low-fat diet thereafter. Follow Up an infection in the gallbladder is a serious problem and must be watched carefully. See your doctor or return here for another exam in the next 1 to 2 days, or as directed by our staff. Once cholecystitis has occurred, removal of the gallbladder is usually required to prevent a recurrence. You can discuss this at your follow-up visit. Get Prompt Medical Attention if any of the following occur: Repeated vomiting Swelling of the abdomen Pain that lasts over 6 hours Fever of 100.4F (38C) or higher, or as directed by your healthcare provider Weakness, dizziness or fainting Dark urine or light colored stools Yellow color of the skin or eyes Chest, arm, back, neck or jaw pain You have been given the following additional information: Cholecystitis, Confirmed (Electronically signed by Noah Delgado MD 07/31/2016 11:13)
--- NOTE | 2016-07-31 11:14 | ED MAR SUMMARY ---
..... Medication Administration Record [facility] [address] [place] [address] Patient: JUJU BARR Visit ID: [id number] 36y, F Weight: 89.6 kg Height/Length: 60 in BMI: 38.6 ALLERGIES: No Known Drug Allergy Start 18:33 07/30/2016 Zen Jackson R.N., Continued Upon Disposition 19:36 07/30/2016 Scarlett Soriano R.N. Medication Administered: IV NS (SALINE), Dose: IV Fluids, Rate: 1000 mL/hr, Bolus: 500 mL, Dispensed: 1000 mL bag, Site: #1 left AC. Medication Ordered: IV NS : initial bolus 500 mL (1000 mL/hr), then 250 mL/hr for 4h (NOW); Routine. Given 19:02 07/30/2016 Zen Jackson R.N. Medication Administered: ZOFRAN [IVP] (ONDANSETRON HCL), Dose: 4 mg IVP, Site: #1 left AC. Medication Ordered: Zofran IV 4 mg (NOW). Given 19:02 07/30/2016 Zen Jackson R.N. Medication Administered: DEMEROL [IVP] (MEPERIDINE HCL), Dose: 12.5 mg IVP, Site: #1 left AC. Medication Ordered: Demerol IV 12.5 mg (NOW). Start 19:20 07/30/2016 Scarlett Soriano R.N., Continued Upon Disposition 19:35 07/30/2016 Scarlett Soriano R.N. Medication Administered: CEFOTAN [IVPB], Dose: 1 gm IVPB over 30 minute(s), Rate: 200 mL/hr, Dispensed: 50 mL bag, Site: #1 left AC. Medication Ordered: Cefotan IV 1 gm (NOW).
--- NOTE | 2016-07-31 11:14 | ED MED RECONCILIATION SUMMARY ---
Patient: JUJU BARR Medication Reconciliation Report [facility] VisitID: [id number] [address] [place] [address] 36y, F Registration Date/Time: 07/30/2016 Weight: 89.6 kg Height/Length: 60 in. BMI: 38.6 ALLERGIES: No Known Drug Allergy The patient's Home Medications are listed below: THE FOLLOWING MEDICATIONS NEED TO BE RECONCILED: Compazine Oral Imitrex Omeprazole 40 mg daily White GI Cocktail The source(s) of the original Home Medication information: patient patient's spouse The following Medications were given to the patient in the Emergency Department: IV NS IV Fluids bolus 500 mL, then 1000 mL/hr, administered: 07/30/2016 6:33:00 PM Zofran [IVP] IVP 4 mg, administered: 07/30/2016 7:02:00 PM Demerol [IVP] IVP 12.5 mg, administered: 07/30/2016 7:02:00 PM Cefotan [IVPB] IVPB bolus 0, then 1 gm 200 mL/hr, administered: 07/30/2016 7:20:00 PM The following Medications were prescribed to the patient: None.
--- NOTE | 2016-07-31 11:14 | ED MAR SUMMARY ---
..... Medication Administration Record [facility] [address] [place] [address] Patient: JUJU BARR Visit ID: [id number] 36y, F Weight: 89.6 kg Height/Length: 60 in BMI: 38.6 ALLERGIES: No Known Drug Allergy Start 18:33 07/30/2016 Zen Jackson R.N., Continued Upon Disposition 19:36 07/30/2016 Scarlett Soriano R.N. Medication Administered: IV NS (SALINE), Dose: IV Fluids, Rate: 1000 mL/hr, Bolus: 500 mL, Dispensed: 1000 mL bag, Site: #1 left AC. Medication Ordered: IV NS : initial bolus 500 mL (1000 mL/hr), then 250 mL/hr for 4h (NOW); Routine. Given 19:02 07/30/2016 Zen Jackson R.N. Medication Administered: ZOFRAN [IVP] (ONDANSETRON HCL), Dose: 4 mg IVP, Site: #1 left AC. Medication Ordered: Zofran IV 4 mg (NOW). Given 19:02 07/30/2016 Zen Jackson R.N. Medication Administered: DEMEROL [IVP] (MEPERIDINE HCL), Dose: 12.5 mg IVP, Site: #1 left AC. Medication Ordered: Demerol IV 12.5 mg (NOW). Start 19:20 07/30/2016 Scarlett Soriano R.N., Continued Upon Disposition 19:35 07/30/2016 Scarlett Soriano R.N. Medication Administered: CEFOTAN [IVPB], Dose: 1 gm IVPB over 30 minute(s), Rate: 200 mL/hr, Dispensed: 50 mL bag, Site: #1 left AC. Medication Ordered: Cefotan IV 1 gm (NOW).
[2016-07-31] MEDS ORDERED: HYCET1 ML PO (11:50)
--- NOTE | 2016-07-31 11:51 | Provider's Discharge Care Plan ---
Problem, Goal, Plan Problem List 1. S/P LAP ROBBIN Goals: Improve disease control, Therapeutic intervention Instructions: Follow up as directed, Take meds as directed
--- NOTE | 2016-07-31 11:51 | Provider's Discharge Care Plan ---
Problem, Goal, Plan Problem List 1. S/P LAP ROBBIN Goals: Improve disease control, Therapeutic intervention Instructions: Follow up as directed, Take meds as directed
--- NOTE | 2016-07-31 11:58 | DIAGNOSTIC IMAGING REPORT ---
PROCEDURE: XR INTRAOPERATIVE LAP ROBBIN INDICATION: IOC TECHNIQUE: Intraoperative fluoroscopy provided for Dr. Washington performing an intraoperative cholangiogram following cholecystectomy. Total fluoroscopy time 8 seconds. Cumulative dose 2.61 mGy. COMPARISON: None. FINDINGS: Three intraoperative fluoroscopic spot images of the right upper quadrant of the abdomen demonstrate cannulation of the cystic duct stump and opacification of the intrahepatic and extrahepatic biliary tree. There are no filling defects. There is normal passage of contrast into the duodenum. IMPRESSION: 1. Negative intraoperative cholangiogram.
--- NOTE | 2016-07-31 11:58 | DIAGNOSTIC IMAGING REPORT ---
PROCEDURE: XR INTRAOPERATIVE LAP ROBBIN INDICATION: IOC TECHNIQUE: Intraoperative fluoroscopy provided for Dr. aWshington performing an intraoperative cholangiogram following cholecystectomy. Total fluoroscopy time 8 seconds. Cumulative dose 2.61 mGy. COMPARISON: None. FINDINGS: Three intraoperative fluoroscopic spot images of the right upper quadrant of the abdomen demonstrate cannulation of the cystic duct stump and opacification of the intrahepatic and extrahepatic biliary tree. There are no filling defects. There is normal passage of contrast into the duodenum. IMPRESSION: 1. Negative intraoperative cholangiogram.
--- NOTE | 2016-07-31 12:02 | NUR ---
PT RECEIVED TO PACU AROUSABLE AND PAINFUL. SHIVERING MILDLY. WARM BLANKETS FOR COMFORT. MEDICATED WITH FENTANYL IV AND TORADOL IM FOR PAIN. VSS.
--- NOTE | 2016-07-31 12:19 | NUR ---
PT NOW CALM AND COMFORTABLE. WARM BLANKET TO ABDOMEN. VSS. RESTING WHEN NOT DISTURBED. PAIN RATED 4/10 NOW AND DESCRIBED "A LITTLE".
--- NOTE | 2016-07-31 12:59 | OPERATIVE REPORT ---
DATE OF SURGERY: 07/31/2016 SURGEON: Richard Washington III, MD ADVERTISER: None. PREOPERATIVE DIAGNOSIS: 1. Acute cholecystitis, cholelithiasis, possible hydrops of the gallbladder POSTOPERATIVE DIAGNOSES: 1. Acute cholecystitis, cholelithiasis, hydrops of gallbladder PROCEDURE PERFORMED: 1. Laparoscopic cholecystectomy with fluoroscopic intraoperative cholangiogram. ANESTHESIA: General endotracheal anesthesia. 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 The pain persisted, worsening in the right upper quadrant. She was seen at [facility] where an ultrasound of her gallbladder showed a 3 cm stone impacted in the neck of the gallbladder and distended gallbladder with thickened gallbladder wall normal. Liver function studies, amylase and total bilirubin and alkaline phosphatase. She was scheduled for emergent surgery. SURGICAL FINDINGS: The patient was noted to have a distended thick walled gallbladder with a large stone impacted in the neck of gallbladder. The intraoperative cholangiogram showed free flow of contrast material into the duodenum with visualization of hepatic duct, common duct and intrahepatic biliary radicles. The posterior wall of the gallbladder was quite thickened and firmly adherent to the gallbladder bed. SURGICAL TECHNIQUE: The patient was brought to the operating room and placed in the dorsal supine position where she underwent general endotracheal anesthesia by the anesthesiology department. After proper anesthesia had taken effect, the patient 's abdomen was prepped using Betadine and draped in a sterile fashion. An infraumbilical incision made, carried down through skin and subcutaneous tissue. A Veress needle was inserted through this site into the abdominal cavity and after ascertaining its appropriate position with suction irrigation, a pneumoperitoneum obtained using CO2 insufflation to approximately 14-15 mmHg pressure. Once this pressure was reached, the Veress needle was removed and replaced with a 10 mm trocar. The trocar removed leaving the sleeve behind, through which a laparoscopic video camera was introduced into the abdominal cavity. Under direct visualization, a separate 10 mm trocar was placed in the subxiphoid region, two 5 mm trocars were placed in the anterolateral abdominal wall, approximately 3-4 fingerbreadths below the costal margin. Each entered the abdominal cavity under direct visualization. The trocars were removed, leaving the sleeves behind, through which laparoscopic instrumentation was introduced in the abdominal cavity and with some difficulty, the gallbladder grasped and retracted cephalad. The cystic duct was circumferentially isolated using a combination of blunt dissection, hydrodissection and electrocautery. Once completely dissected and circumferentially isolated, a clip was placed at the neck of the gallbladder and the cystic duct. A small incision made on the anterior surface of the cystic duct. A percutaneous cholangiogram catheter was threaded through the anterior abdominal wall into the cystic duct and a fluoroscopic intraoperative cholangiogram obtained with the aforementioned findings noted. Once completed, the percutaneous cholangiogram catheter was retrieved from the cystic duct and the abdominal cavity. The distal cystic duct was clipped in continuity and divided. The cystic artery identified, clipped in continuity and divided. The gallbladder was taken down tediously from its gallbladder bed using electrocautery dissection. Once completely freed from its bed, the gallbladder was placed in a sterile specimen container bag and retrieved from the abdominal cavity and sent to pathology. The gallbladder bed was inspected for hemostasis. Assuring us to have proper hemostasis, the right upper quadrant was irrigated with warm normal saline and antibiotic solution. The irrigant suctioned out. Approximately 30 mL of 0.5% Marcaine with epinephrine was sprayed over the right and left dome of the liver for postoperative analgesia. The pneumoperitoneum released and all trocars were removed from the abdominal cavity. All trocar sites approximated using 4-0 subdermal Polysorb and Steri-Strips. A sterile pressure occlusive dressing was placed over each site. The patient tolerated the procedure well, was extubated and transferred to the recovery room in stable condition. There were no intraoperative or anesthetic complications.
--- NOTE | 2016-07-31 13:45 | NUR ---
RECEIVED PT FROM PACU DROWSY. EASILY AROUSEABLE, BUT FALLS DIRECTLY BACK TO SLEEP. TROCAR SITES TO ABD FELICITAS. TAMIR. CAIT.
--- NOTE | 2016-07-31 15:01 | NUR ---
NUTRITION ASSESSMENT: S: Pt admitted with dx/o abdominal pain and cholelithiasis. PMH includes Peptic ulcer disease. O: Diet Rx: NPO NKFA Wts: 85.9 kg Ht: 60" BMI: 37 IBW: 55-62 kg %IBW: ~138%
--- NOTE | 2016-07-31 20:17 | NUR ---
UPPER TROCAR SITE SATURATED WITH SEROSANG FLUID. OLD DRESSING REMOVED AND NEW ONE PLACED. BT'S HYPOACTIVE. PAIN HAS BEEN 8 TO 10/10 S/P LAP ROBBIN PAIN. DERMEROL 25 MG EFFECTIVE FOR PAIN FOR 1-2 HOURS. PT STATES, "I HURT A LOT AND DON'T FEEL LIKE I CAN GO HOME." DR LOPEZ CALLED. NO ANSWER TO HOME PHONE OR CELL PHONE. PASSED ON TO NOC SHIFT RN.
--- NOTE | 2016-07-31 21:08 | NUR ---
PT ALERT AND ORIENTED, COOPERATIVE WITH CARE. NO DISTRESS NOTE. PT DENIES ANY CHEST PAIN, SOB, NAUSEA, AND VOMITING. BOWEL SOUNDS PRESENT, PT DENIES PASSING ANY GAS. PT ABLE TO VOID SEVERAL TIMES. ABD TROCHAR SITES X 4 C/D/I. PT C/O 5/10 ABD PAIN, PAIN MEDICATION GIVEN ALONG WITH ZOFRAN IV. VSS, AFEBRILE. IV DC IN THE LAC, WNL. PT GIVEN RX AND DC ORDERS REVIEWED WITH PATIENT. ALL QUESTIONS ANSWERED.BELONGINGS WITH PATIENT. PT WALKED OUT WITH FACILITY TECH.
== END 2016-07-31 21:10 | disposition home or self-care (01) ==
LOC: ED SRH 17:31 → ACUTE2 SRH 19:16 → TRANS SRH 19:16 → ACUTE2 SRH 20:05
PROVIDERS: ADMIT Emergency Medicine
DX: K80.00 Calculus of gallbladder with acute cholecystitis without obstruction (principal); K82.1 Hydrops of gallbladder
CPT/HCPCS: 29229; 29230; 29250; 29251; 29259; 29264; 50002; 60001; 70002; 80102; 80212; 80248; 82669; 82794; 82807; 83338; 83339; 83348; 83587; 83920; 83937; 83982; 84038; 90004; 90047; 90074; 90100; 90469; 90627; 92235; 92520; 92530; 92540; 92760; 92761; 92762; 92763; 92764; 92765; 92766; 92767; 93070; 95059